=== PATIENT | female | born 1940 | race Caucasian/White ===

== ENCOUNTER 2019-07-31 15:48 | Inpatient (IN) | payer OTHER ==
[~2019-07-31] VITALS: Ht 157.5 cm; Wt 59.0 kg
[2019-08-06] MEDS ORDERED: NEURONTIN300 MG PO (11:02)
[2019-08-06] MEDS ORDERED: NIFEDIPINE20 MG PO (11:03)
[2019-08-06] MEDS ORDERED: CARAFATE1 GM PO (11:03)
[2019-08-06] MEDS ORDERED: TOPROL XL50 M1 PO (11:03)
[2019-08-06] MEDS ORDERED: SYNTHROID50 MCG PO (11:04)
[2019-08-06] MEDS ORDERED: SIMVASTATIN5 MG PO (11:04)
[2019-08-06] MEDS ORDERED: [UNRECOGNIZED DRUG - OTHER] (11:04)
[2019-08-22] MEDS ORDERED: CLONAZEPAM0.5 MG PO (11:40)
[2019-08-22] MEDS ORDERED: CLONIDINE HCL0.1 MG PO (11:40)
[2019-08-22] MEDS ORDERED: XYZAL5 MG PO (11:41)
[2019-08-22] MEDS ORDERED: ESCITALOPRAM OX10 MG PO (11:41)
[2019-08-24] MEDS ORDERED: TYLENOL ARTHRI650 MG PO (10:54)
== END 2019-08-24 12:42 | disposition home or self-care (01) | DRG 348 ==
LOC: SURG 08-15 09:00 → O/R 08-22 08:40 → SURH 08-22 08:40
PROVIDERS: ADMIT Surgery
PROC: 0KXM0ZZ Transfer Perineum Muscle, Open Approach (ICD-10-PCS; 2019-08-22)
PROC: 0DBP7ZZ Excision of Rectum, Via Natural or Artificial Opening (ICD-10-PCS; principal; 2019-08-22 11:00)
DX: K62.3 Rectal prolapse (principal); K62.5 Hemorrhage of anus and rectum; K63.89 Other specified diseases of intestine; R15.9 Full incontinence of feces; I10 Essential (primary) hypertension; E03.8 Other specified hypothyroidism